=== PATIENT | male | born 1975 | race Caucasian/White ===

== ENCOUNTER 2018-07-16 12:30 | Day surgery (SDC) | payer OTHER ==
[2018-07-14 13:43] VITALS: BMI 26.5
[2018-07-16] MEDS ORDERED: MIDAZOLAM HCL 2 MG/2 ML SINGLE DOSE VIAL ONE (12:52)
[2018-07-16] MEDS ORDERED: PROPOFOL 20 ML ONE (12:52)
[2018-07-16] MEDS ORDERED: ONDANSETRON 4 MG/2 ML VIAL ONE (13:17)
[2018-07-16] MEDS ORDERED: LIDOCAINE HCL/PF 2% SDV 5ML VIAL ONE (13:17)
[2018-07-16] MEDS ORDERED: DEXAMETHASONE SOD PHOSPHATE 4 MG/1 ML VIAL ONE (13:17)
[2018-07-16] MEDS ORDERED: DESFLURANE GAS 240 ML BOTTLE IH ONE (13:22)
[2018-07-16] MEDS ORDERED: ceFAZolin SODIUM 1 GM VIAL ONE (13:25)
[2018-07-16] MEDS ORDERED: oxyCODONE HCL 5 MG TABLET PO PRN (14:15)
[2018-07-16] MEDS ORDERED: ONDANSETRON 4 MG/2 ML VIAL IVPUSH PRN (14:15)
[2018-07-16] MEDS ORDERED: LACTATED RINGERS SOLUTION 1,000 ML IV SCH (14:15)
[2018-07-16 15:11] VITALS: PULSE 74
[2018-07-16 16:00] VITALS: BP 131/78; TEMP 98
--- NOTE | 2018-07-16 16:15 | OP ---
DATE OF OPERATION: 07/16/2018 PREOPERATIVE DIAGNOSIS: Right thumb ulnar collateral ligament tear. POSTOPERATIVE DIAGNOSIS: Right thumb ulnar collateral ligament tear. OPERATIVE PROCEDURE: Right thumb ulnar collateral ligament repair. SURGEON: Rio Emerson MD DIETETIC AIDE: ANISH Obando ANESTHESIA: General. COMPLICATIONS: None. ESTIMATED BLOOD LOSS: Minimal. INDICATIONS FOR PROCEDURE: The patient is a 43-year-old male with the above finding, indicated for operative treatment. Risks, benefits, and alternatives were discussed with the patient at length. Proper informed consent was obtained. PROCEDURE: After proper identification of the patient and correct operative site, the patient was brought to the operating room and placed supine on the table. All prominences well padded. General anesthesia was provided. Right upper extremity was prepped and draped in the usual sterile fashion. A well-padded tourniquet was placed over the sterile prep. Esmarch bandage used to exsanguinate the left upper extremity. Tourniquet was inflated to 250 mmHg. A curvilinear incision was made over the thumb ulnar collateral ligament. Incision was taken sharply through skin. Blunt dissection was performed through the subcutaneous tissues, careful to protect the sensory nerve branches. Adductor aponeurosis divided and complete tear of the ulnar collateral ligament was visualized. This was repaired using an Arthrex internal-brace technique using two 3.5-mm SwiveLock anchors, 1 in the base of the thumb proximal phalanx and 1 in the neck of the head of the thumb metacarpal. The ligament was repaired using a 2-0 FiberWire suture attached to the anchor in the base of the proximal phalanx. A FiberTape suture was then placed through the same anchor and attached to the metacarpal anchor to provide the internal brace. Excellent stability was achieved. Good range of motion was achievable. Adductor aponeurosis was repaired and the skin was repaired in layers using 4-0 Vicryl, 4-0 Monocryl, and Steri-Strips. Splint was placed. Patient was reversed from anesthesia and brought to the recovery room in stable condition. Calderon Conn, the assistant in nursing, was integral throughout this procedure. The procedure could not have been performed without a skilled operative assistant in nursing. Siobhan [id number]
== END 2018-07-16 16:06 | disposition home or self-care (01) ==
LOC: FASU 12:30
PROVIDERS: ATTEND Orthopaedic Surgery Hand Surgery
PROC: 0MQ70ZZ Repair Right Hand Bursa and Ligament, Open Approach (ICD-10-PCS; principal; 2018-07-16 13:29)
DX: S63.641A Sprain of metacarpophalangeal joint of right thumb, initial encounter (principal); X58.XXXA Exposure to other specified factors, initial encounter; Y93.89 Activity, other specified; Y92.89 Other specified places as the place of occurrence of the external cause
CPT/HCPCS: 94760